=== PATIENT | female | born 1990 | race Hispanic/Latino ===

== ENCOUNTER 2019-06-28 12:48 | Emergency (ER) | payer SELFPAY ==
[~2019-06-28 12:48] MED LIST: Sodium Chloride 0.9% 100 ML BAG ONE
[2019-06-28] MEDS ORDERED: Iopamidol 370 76% 125 ML VIAL FS ONE (12:58)
[2019-06-28 13:50] LABS: #Eosinphils 0.1 thou/uL (0.0-0.7); #Lymphocytes 1.9 thou/uL (1.20-3.40); #Monocytes 0.4 thou/uL (0.11-0.59); #Neutrophils 3.9 thou/uL (1.40-6.50); %Basophils 0.7 % (0.0-1.0); %Eosinophils 1.2 % (0.0-10.0); %Lymphocytes 29.7 % (21.0-51.0); %Neutrophils 62.4 % (42.0-75.0); Hemoglobin 12.1 g/dL (12.0-16.0); Mean Corpuscular HGB CONC 31.2 g/dL (32.0-36.0); Mean Corpuscular Hemoglobin 27.3 pg (27.0-31.0); Mean Corpuscular Volume 87.4 fL (78.0-98.0); Mean Platelet Volume 8.8 fL (7.4-10.4); Platelet Count 261 thou/uL (130-400); RBC Distribution Width 13.5 % (11.5-14.5); Red Blood Cell (RBC) Count 4.44 mill/uL (4.20-5.40); White Blood Cell (WBC) Count 6.3 thou/uL (4.8-10.8)
[2019-06-28 14:08] LABS: ALT (SGPT) 22 U/L (8-55); AST (SGOT) 20 U/L (5-34); Albumin 4.1 g/dL (3.5-5.0); Alkaline Phosphatase 73 U/L (40-110); Anion Gap 14 mmol/L (10-20); BUN (Urea Nitrogen) 7 mg/dL (7.0-18.7); Bilirubin, Total 0.3 mg/dL (0.2-1.2); Calc. Creatinine Clearance 0 mL/min (70-130); Calcium 8.9 mg/dL (7.8-10.44); Carbon Dioxide 21 mmol/L (22-29); Chloride 106 mmol/L (98-107); Estimated GFR-MDRD 89; Globulin 3.4 g/dL (2.4-3.5); Glucose 134 mg/dL (70-105); Potassium 3.7 mmol/L (3.5-5.1); Protein, Total 7.5 g/dL (6.0-8.3); Sodium 137 mmol/L (136-145)
--- NOTE | 2019-06-28 15:07 | RAD ---
PORTABLE CHEST 1 VIEW: DATE: 06/28/2019. TIME: 1:26 PM. HISTORY: Chest pain. FINDINGS: The heart size is normal. No focal areas of consolidation, pneumothoraces, or pleural effusions are seen. IMPRESSION: No acute process. POS: [facility]
[2019-06-28 15:22] LABS: BHCG - Serum Negative (NEGATIVE); Pregs Control Background? CLEAR/WHITE (CLR/WHITE); Pregs Control Bar Appear? YES (CONTROL BAR)
--- NOTE | 2019-06-28 16:12 | CT ---
CT ANGIOGRAM CHEST WITH CONTRAST: 06/28/19 HISTORY: Chest pain. COMPARISON: Reference is made to a radiograph same day. FINDINGS: CT angiogram chest preformed after the intravenous administration of contrast. 3D rendering provided. 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 No proximal segmental pulmonary artery filling defect. No pericardial effusion. The upper abdomen is unremarkable. The sternum and manubrium are intact. The thoracic spine is intact. No acute displaced rib fracture. IMPRESSION: 1. No pulmonary embolism. 2. No acute pneumonia or other inflammatory process in the chest. 3. 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 POS: [facility]
== END 2019-06-28 16:30 | disposition home or self-care (01) ==
LOC: MADERS 12:48
DX: M94.0 Chondrocostal junction syndrome [Tietze] (principal); Z79.899 Other long term (current) drug therapy
CPT/HCPCS: 36415; 71045; 71275; 80053; 83880; 84484; 84703; 85025; J3490; Q9967